=== PATIENT | male | born 2000 | race Caucasian/White ===

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

== ENCOUNTER → 2020-05-03 08:48 | Outpatient (CLI) | payer OTHER ==
[~2020-05-03 08:48] MED LIST changes: +MEDROLPACK PO; +OSEL75CA PO
== END | disposition home or self-care (01) ==
LOC: LAB 08:48
PROVIDERS: ATTEND General Practice
DX: Z00.8 Encounter for other general examination (principal); E78.2 Mixed hyperlipidemia; Z13.6 Encounter for screening for cardiovascular disorders